=== PATIENT | male | born 1970 | race African-American/Black ===

== ENCOUNTER 2017-06-01 18:07 | Emergency (ER) | payer OTHER ==
[~2017-06-01] VITALS: Ht 177.8 cm; Wt 103.9 kg
[2017-06-01 18:13] VITALS: BP 150/100
== END 2017-06-01 20:26 | disposition home or self-care (01) ==
LOC: ER 18:08
DX: S10.96XA Insect bite of unspecified part of neck, initial encounter (principal); L03.221 Cellulitis of neck; W57.XXXA Bitten or stung by nonvenomous insect and other nonvenomous arthropods, initial encounter; Y93.89 Activity, other specified; Y99.8 Other external cause status; Y92.89 Other specified places as the place of occurrence of the external cause